=== PATIENT | female | born 1975 | race Caucasian/White ===

== ENCOUNTER → 2019-04-22 11:15 | Outpatient (CLI) | payer BC, SELFPAY ==
--- NOTE | ~2019-04-22 | XR_ITS ---
EXAMINATION: XR hip RT min 2V EXAM DATE: 04/22/2019 12:07 INDICATION: No known recent injury provided at this time. Pain of the right hip. TECHNIQUE: Right hip frontal, crosstable lateral and 'frog-leg' projections for interpretation. There is no prior study for comparison. FINDINGS: Smooth right hip femoral head contour, no radiographic evidence of avascular necrosis. The re are no acute fractures or dislocations identified. There is no subcutaneous gas. The soft tissue is unremarkable. There are no radiopaque foreign bodies. There is mild primary osteoarthritis. IMPRESSION: Mild right hip osteoarthritis. Reviewed, dictated and finalized at location B. M CLOTHES PRESS OPERATOR
--- NOTE | ~2019-04-22 | XR_ITS ---
EXAMINATION: XR hip LT min 2V EXAM DATE: 04/22/2019 12:09 INDICATION: No known recent injury provided at this time. Pain of the left hip. TECHNIQUE: Left hip frontal, crosstable lateral and 'frog-leg' projections for interpretation. There is no prior study for comparison. FINDINGS: Smooth left hip femoral head contour, no radiographic evidence of avascular necrosis. Ther e is mild left hip primary osteoarthritis. There are no acute fractures or dislocations identified. There is no subcutaneous gas. The soft tissue is unremarkable. There are no radiopaque foreign bod ies. IMPRESSION: Mild left hip osteoarthritis. Reviewed, dictated and finalized at location B. ING MACHINE OPERATOR
--- NOTE | ~2019-04-22 | XR_ITS ---
EXAMINATION: XR foot LT 2V EXAM DATE: 04/22/2019 12:07 INDICATION: No known recent injury provided at this time. Pain of the left foot. TECHNIQUE: Frontal and lateral projections of the left foot. There is no prior study for comparison . FINDINGS: Tiny left calcaneal spurs. There are no acute fractures or dislocations identified. There is no subcutaneous gas. The soft tissue is unremarkable. There are no radiopaque foreign bodies. The joint spaces are uniform. IMPRESSION: Tiny left calcaneal spurs. Reviewed, dictated and finalized at location B. FIELD MANAGER IMPRESSION: Tiny left calcaneal spurs.
--- NOTE | ~2019-04-22 | XR_ITS ---
EXAMINATION: XR foot RT 2V EXAM DATE: 04/22/2019 12:07 INDICATION: No known recent injury provided at this time. Pain of the right foot. TECHNIQUE: Frontal and lateral projections of the right foot. There is no prior study for compariso n. FINDINGS: There is mild right first metatarsophalangeal joint primary osteoarthritis. Tiny calcaneal spurs. There are no acute fractures or dislocations identified. There is no subcutaneous gas. The soft tissue is unremarkable. There are no radiopaque foreign bodies. There are no bony erosions id entified. IMPRESSION: Mild right first MTP osteoarthritis. Reviewed, dictated and finalized at location B. N WINDER
--- NOTE | ~2019-04-22 | XR_ITS ---
EXAMINATION: XR knee RT 2V DATE: 04/22/2019 12:06 INDICATION: Multiple joint pain. TECHNIQUE: 2 views of right knee were obtained. COMPARISON: None. FINDINGS: Bone alignment is normal. No fracture. There is mild tricompartmental osteoarthritis. No kn ee joint effusion. IMPRESSION: 1. Mild right knee osteoarthritis. Reviewed, dictated and finalized at location A. IT RISK OFFICER
--- NOTE | ~2019-04-22 | XR_ITS ---
EXAMINATION: XR knee LT 2V EXAM DATE: 04/22/2019 12:07 INDICATION: Initial encounter following injury, with pain of the left knee. TECHNIQUE: Frontal and lateral projections of the left knee. There is no prior study for comparison . FINDINGS: There are no acute left knee fractures or dislocations identified. There is no subcutaneou s gas. The soft tissue is unremarkable. There are no radiopaque foreign bodies. Joint spaces are preserved, no bony productive changes. No joint effusion. IMPRESSION: 1. Unremarkable XR knee LT 2V exam. Reviewed, dictated and finalized at location B. ELAIN ENAMEL INSTALLER
== END ==
PROVIDERS: PCP Internal Medicine Rheumatology; Visit Provider Internal Medicine Rheumatology
DX: M19.071 Primary osteoarthritis, right ankle and foot (principal); M77.32 Calcaneal spur, left foot; M16.0 Bilateral primary osteoarthritis of hip; M17.12 Unilateral primary osteoarthritis, left knee
CPT/HCPCS: 73502; 73560; 73620

== ENCOUNTER → 2019-04-22 13:57 | Outpatient (CLI) | payer BC, SELFPAY ==
--- NOTE | ~2019-04-22 | MMUS_ITS ---
EXAMINATION: MM diagnostic vanessa BI w shanice, US breast LT limited HISTORY: Palpable left breast lump with pain for one month TECHNIQUE: Additional 3-D tomosynthesis images of the breasts were performed and synthetic 2-D images were generated. CAD analysis was submitted and interpreted. High resolution left breast ultrasound w as performed. COMPARISON: Comparison to multiple prior studies sequentially, with oldest reviewed study dated 05/07. FINDINGS: MAMMOGRAPHIC FINDINGS: Breast composed of scattered areas of fibroglandular density. There are no suspicious masses, calcifi cations or architectural distortion in either breast to suggest malignancy. ULTRASOUND: Left breast ultrasound: Normal heterogeneous echotexture without focal mass. IMPRESSION: 1. No mammographic or sonographic evidence for malignancy. 2. Routine yearly screening mammogram and regular clinical breast examination are recommended. BI-RADS Category 1: Negative Reviewed, dictated and finalized at location A. ER GUARD IMPRESSION: 1. No mammographic or sonographic evidence for malignancy. 2. Routine yearly screening mammogram and regular clinical breast examination a re recommended. BI-RADS Category 1: Negative
== END ==
PROVIDERS: Visit Provider Nurse Practitioner
DX: N63.20 Unspecified lump in the left breast, unspecified quadrant (principal)
CPT/HCPCS: 76642; 77062; 77066; G0279

== ENCOUNTER 2019-08-23 15:50 | Emergency (ER) | payer BC, SELFPAY ==
[2019-08-23 16:37] VITALS: BP 131/74; PULSE 124; RESP 20; TEMP 37.4; O2SAT 99
--- NOTE | 2019-08-23 16:43 | ED.WOUNDLAC ---
HPI - Wound/Laceration General Chief Complaint: Wound/Laceration Stated Complaint: dog bite Time Seen by Provider: 08/23/19 16:46 Source: patient and RN notes reviewed Mode of arrival: ambulatory Limitations: no limitations History of Present Illness HPI narrative: 43-year-old female presents with concern for dog bite. Reports prior to arrival she was breaking up a fight between her dogs, who are up-to-date on vaccinations, when she sustained 2 superficial lacerations to her left digits 2 and 3. Reports she is not up-to-date on her tetanus vaccine. Denies any decreased range of motion, strength, sensation in any digit. Related Data Home Medications Medication Instructions Recorded Confirmed omeprazole 08/23/19 ropinirole mg 08/23/19 Allergies Allergy/AdvReac Type Severity Reaction Status Date / Time azithromycin Allergy Severe RASH Verified 10/26/17 10:19 Cephalosporins Allergy Severe Anaphylactic Verified 10/26/17 10:19 Shock, Rash Review of Systems Review of Systems: Narrative: CONSTITUTIONAL: Denies malaise, chills, sweats, or fever. SKIN: Reports wound to the second and third digit of her left hand MUSCULOSKELETAL: Denies musculoskeletal pain, decreased range of motion, decrease strength NEUROLOGIC: Denies numbness, weakness. All systems reviewed & are unremarkable except as noted in HPI and below PMFSH Family History Family History (Updated 04/18/16 @ 14:22 by DOCTOR UNKNOWN) Mother Cerebrovascular accident Father Family history of lung cancer Other Diabetes mellitus Family history of allergic disorder Family history of cardiovascular disease Family history of malignant neoplasm Social History Social History Smoking status: Current every day smoker Alcohol intake: current Comments At time of signature, agree with nursing past medical, surgical, social and family history. There is no relevant family history pertinent to the presenting complaint Exam Narrative: Exam Narrative: GENERAL: Well-appearing, well-nourished, and in no acute distress. HEAD: Normocephalic EYES: PERRLA, conjunctivae clear ENT: Mucous membranes moist. TM pearly lemus with sharp light reflex bilaterally; no tragal tenderness. Oropharynx without erythema or lesions. Tonsils not enlarged and without exudate. NECK: Supple. CHEST: No respiratory distress. Speaks in full sentences. HEART: Regular rate and rhythm EXTREMITIES: Left hand and digits of hand have normal strength and sensation. 5/5 strength with digit flexion, extension. Range of motion normal. No clubbing, cyanosis, or edema noted. No tenderness. Normal digital cascade with flexion of fingers, median, ulnar and radial nerve intact. Normal sensation of each side of finger. Can perform 'okay' sign, 'cross over finger test of index and middle fingers' and 'thumbs up' sign. No scissoring. Normal thumb opposition. Good capillary refill and radial pulse. Distal capillary refill ?3 seconds. SKIN: Warm, dry, no rash. 2 linear lacerations, superficial, noted to the second and third digit of left hand. Second digit wound is 2.5 cm located between the DIP and the PIP joints. The wound to the third digit is approximately 2 cm. NEURO: Alert and oriented x3. PSYCH: Normal mood and affect Course Course Emergency Course: Wound superficial, cleansed and closed with Steri-Strips, well approximated. Patient is aware of diagnosis, understands and agrees to treatment plan. Anticipatory guidance given. Patient agrees to follow-up as directed and is aware of reasons to seek care at the emergency department. Portions of this record may have been created with voice recognition software Vital Signs Vital signs: Vital Signs Temperature 99.3 F 08/23/19 16:37 Pulse Rate 124 H 08/23/19 16:37 Respiratory Rate 20 08/23/19 16:37 Blood Pressure 131/74 08/23/19 16:37 Pulse Oximetry 99 08/23/19 16:37 Temperature 99.3 F 08/23/19 16:37 Pulse Rate 124 H
[2019-08-23] MEDS: TETANUS,DIPHTHERIA,AC PERTUSSIS ADULT (0.5 ML) BOOSTRIX IM (17:02)
== END 2019-08-23 17:23 | disposition home or self-care (01) ==
PROVIDERS: Emergency Provider Nurse Practitioner
DX: S61.251A Open bite of left index finger without damage to nail, initial encounter (principal); S61.253A Open bite of left middle finger without damage to nail, initial encounter; Z23 Encounter for immunization; W54.0XXA Bitten by dog, initial encounter; F17.200 Nicotine dependence, unspecified, uncomplicated
CPT/HCPCS: 90471; 90715; 99212; G0463

== ENCOUNTER 2019-11-10 17:54 | Emergency (ER) | payer BC, SELFPAY ==
--- NOTE | ~2019-11-10 | XR_ITS ---
EXAMINATION: XR lumbar spine 2-3V DATE: 11/10/2019 19:56 INDICATION: Low back pain. TECHNIQUE: 3 views of lumbar spine were obtained. COMPARISON: CT abdomen and pelvis 10/10/2012 FINDINGS: There is 5 degrees dextrocurvature of lumbar spine. Vertebral body heights are normal. Ther e are endplate osteophytes at most levels. Intervertebral disc heights are normal. There is multileve l mild facet joint osteoarthritis. Surgical clips in the right upper quadrant are likely from cholecy stectomy. IMPRESSION: 1. Mild lumbar spondylosis. Reviewed, dictated and finalized at location A. IMPRESSION: 1. Mild lumbar spondylosis.
[2019-11-10 18:45] VITALS: BP 131/79; PULSE 90; RESP 16; TEMP 36.1; O2SAT 100
--- NOTE | 2019-11-10 20:17 | ED.BACK ---
HPI - Back Pain/Injury General Chief Complaint: Back Pain/Injury Stated Complaint: Lower back pain Time Seen by Provider: 11/10/19 20:16 History of Present Illness HPI Narrative: Low back pain for the past 2 days. Started a few hours after moving furniture. Located in the bilateral lower back. Radiates into the buttocks bilaterally. Reports the her legs feel shakey. She has been ambulatory. She tired meloxicam without relief. No fever, incontinence, constipation, trauma. Related Data Home Medications Medication Instructions Recorded Confirmed omeprazole BID 08/23/19 ropinirole 1 mg HS 08/23/19 cetirizine [Zyrtec] 10 mg PO DAILY 11/10/19 cholecalciferol (vitamin D3) 25 mcg PO DAILY 11/10/19 [Vitamin D3] ferrous sulfate 325 mg PO DAILY 11/10/19 Allergies Allergy/AdvReac Type Severity Reaction Status Date / Time azithromycin Allergy Severe RASH Verified 11/10/19 18:50 Cephalosporins Allergy Severe Anaphylactic Verified 11/10/19 18:50 Shock, Rash Review of Systems Review of Systems: All systems reviewed & are unremarkable except as noted in HPI and below Constitutional: Constitutional: Denies fever(s) and Denies weakness Cardiovascular: Cardiovascular: Denies chest pain Respiratory: Respiratory: Denies dyspnea Gastrointestinal: Gastrointestinal: Denies abdominal pain and Denies nausea Genitourinary: Genitourinary: Denies hematuria and Denies dysuria Musculoskeletal: Musculoskeletal: Reports back pain Neurologic: Denies dizziness, Denies headache(s) and Denies weakness PMFSH Past Medical History Medical History Fibromyalgia Low back pain Family History Family History Mother Cerebrovascular accident Father Family history of lung cancer Other Diabetes mellitus Family history of allergic disorder Family history of cardiovascular disease Family history of malignant neoplasm Social History Social History Smoking status: Current every day smoker Alcohol intake: current Gender identity (if verbalized by the patient): Female Exam Const: General: healthy appearing, no acute distress and alert Orientation/consciousness: patient oriented x3 HENMT: Head: normal to inspection Neck: Neck: normal visual inspection and no lymphadenopathy Chest: Chest palpation & inspection: no tenderness Resp: Effort & Inspection: normal respiratory effort Auscultation: clear to auscultation bilaterally, no rales, no rhonchi and no wheezes Cardio: Jugular venous distension: no JVD Rate: regular rate Rhythm: regular rhythm Heart sounds: no murmurs GI: Inspection: non-distended GI Palp: Yes Soft to palpation and No Tenderness to palpation present (GI) Skin: General skin exam: normal color Neuro: General: patient oriented x3 and moves all extremities Speech: normal speech Motor exam (neuro): 5/5 motor strength present throughout Extrem: General: no edema Psych: Appearance: well kempt Affect: normal affect Course Vital Signs Vital signs: Vital Signs Temperature 36.1 C L 11/10/19 18:45 Pulse Rate 90 11/10/19 18:45 Respiratory Rate 16 11/10/19 18:45 Blood Pressure 131/79 11/10/19 18:45 Pulse Oximetry 100 11/10/19 18:45 Temperature 36.7 C 11/10/19 22:40 Pulse Rate 79 11/10/19 22:40 Respiratory Rate 18 11/10/19 22:40 Blood Pressure 121/79 11/10/19 22:40 Pulse Oximetry 100 11/10/19 22:40 MDM - Back Pain/Injury MDM Narrative Medical decision making narrative: Exam is benign. She reports recent MRI here. I do not see it in our system, but based on what she is telling me it sounds like there were no particularly concerning findings. Differential Diagnosis Differential diagnosis: Likely sciatica and strain of lumbar region Medical Records Attestation: I reviewed the patient's med
[2019-11-10] MEDS: KETOROLAC (*BKC) 60 MG/2 ML VIAL IM (21:06)
[2019-11-10 21:34] VITALS: BP 128/86; PULSE 88; RESP 18; O2SAT 100
[2019-11-10] MEDS: MORPHINE SULFATE 10 MG/ML AMP 4 MG IM (22:08)
[2019-11-10 22:40] VITALS: BP 121/79; PULSE 79; RESP 18; TEMP 36.7; O2SAT 100
== END 2019-11-10 22:42 | disposition home or self-care (01) ==
PROVIDERS: Emergency Provider Emergency Medicine
DX: S39.012A Strain of muscle, fascia and tendon of lower back, initial encounter (principal); M79.7 Fibromyalgia; F17.200 Nicotine dependence, unspecified, uncomplicated; M47.816 Spondylosis without myelopathy or radiculopathy, lumbar region; X50.9XXA Other and unspecified overexertion or strenuous movements or postures, initial encounter
CPT/HCPCS: 72100; 96372; 99284; J1100; J1885; J2270; J3360

== ENCOUNTER → 2020-06-01 07:54 | Outpatient (CLI) | payer BC, SELFPAY ==
--- NOTE | ~2020-06-01 | MMUS_ITS ---
EXAMINATION: MM diagnostic vanessa BI w shanice, US breast LT limited HISTORY: Lower inner quadrant left breast lump, pain near inframammary fold. Bilateral nipple dischar ge. TECHNIQUE: ML, MLO and craniocaudal 3-D tomosynthesis images of both breasts were performed and synth etic 2-D images were generated. CAD analysis was submitted and interpreted. High resolution lower inn er quadrant left breast ultrasound was performed. COMPARISON: Serial mammographic and left breast ultrasound images dating back to 05/03/2016 BREAST PARENCHYMAL COMPOSITION: There are scattered areas of fibroglandular density. FINDINGS: MAMMOGRAPHIC FINDINGS: An approximately 3.6 x 7.7 mm circumscribed opacity is noted in the lower inner quadrant left breast at approximately 8-9:00 position. No suspicious mass or architectural distortion is noted otherwise. There are occasional bilateral nilda ign calcifications. There is a biopsy marker in the upper outer quadrant of the left breast; history of prior benign left stereotactic breast biopsy in 2018. ULTRASOUND: No suspicious mass, shadowing or cyst or other significant sonographic finding is noted at the area o f clinical complaint of lump and pain at 7:00 10 cm from the nipple. At 9:00 approximately 7 cm from the nipple there is an approximately 4 x 6.7 mm circumscribed hypoech oic solid lesion with some posterior shadowing. No internal vascularity is evident. This lesion likel y corresponds to the above-mentioned mammographic opacity. IMPRESSION: 1. 4 x 6.7 mm shadowing solid mass at 9:00 7 cm from nipple 2. Ultrasound-guided biopsy of 9:00 lesion 7 cm from nipple is recommended. BI-RADS category 4, suspicious finding. Dr. Jones telephoned the report and left breast 9:00 ultrasound guided biopsy recommendation on 06/02/19 21 at 0920 hours to Nurse Trinity. Reviewed, dictated and finalized at location A. IMPRESSION: 1. 4 x 6.7 mm shadowing solid mass at 9:00 7 cm from nipple 2. Ultrasound-guided biopsy of 9:00 lesion 7 cm from nipple is recommended. BI-RADS category 4, suspicious finding. Dr. Jones telephoned the report and left breast 9:00 ultrasound guided biopsy re commendation on 06/01/2020 at 0920 hours to Nurse Trinity.
== END ==
PROVIDERS: PCP Nurse Practitioner Family; Visit Provider Nurse Practitioner
DX: N63.25 Unspecified lump in the left breast, overlapping quadrants (principal); R92.8 Other abnormal and inconclusive findings on diagnostic imaging of breast
CPT/HCPCS: 76642; 77062; 77066; G0279

== ENCOUNTER → 2020-12-01 17:52 | Outpatient (CLI) | payer BC, SELFPAY ==
--- NOTE | ~2020-12-01 | XR_ITS ---
XR scapula LT DATE: 12/01/2020 18:16 INDICATION: Left scapular pain for 3 years TECHNIQUE: AP and Neer views COMPARISON: None FINDINGS: No fracture or dislocation or bone destruction of the scapula. Normal alignment at the acro mioclavicular and glenohumeral joints. IMPRESSION: Negative Reviewed, dictated and finalized at location A. IMPRESSION: Negative
== END ==
PROVIDERS: PCP Nurse Practitioner Family; Visit Provider Nurse Practitioner Family
DX: M75.42 Impingement syndrome of left shoulder (principal)
CPT/HCPCS: 73010

== ENCOUNTER 2020-12-07 08:40 | Outpatient (CLI) | payer BC, SELFPAY ==
--- NOTE | ~2020-12-07 | MR_ITS ---
EXAMINATION: MRI RT SHOULDER W/WO DATE: 11/15/09 12:58:00 INDICATION: Scapular pain with popping, grinding and numbness/tingling throughout the adjacent chest wall. TECHNIQUE: Magnetic resonance imaging (MRI) of the right scapula/shoulder was performed without intra venous contrast. Sequences included axial PD-weighted FS FSE, coronal oblique T1-weighted FSE, becker l oblique T2-weighted FS FSE, sagittal T2-weighted FS FSE, and sagittal T1-weighted FSE. COMPARISON: Left scapula radiographs dated 12/01/2020 FINDINGS: Coracoacromial arch: The acromion undersurface is minimally curved in morphology (type I-II). The coracoacromial ligament is normal. Acromioclavicular joint is normal. Rotator cuff: Supraspinatus tendinopathy without discrete tear. The infraspinatus, teres minor and subscapularis te ndons are normal. Normal rotator cuff muscle bulk and signal. Biceps tendon, glenoid labrum and glenohumeral cartilage: Long head of the biceps tendon is normal. Glenoid labrum is normal. Glenohumeral cartilage is normal. Fluid: Physiologic amount of fluid in the glenohumeral joint and biceps tendon sheath. No loose osteochondra l bodies. No abnormally increased fluid signal in the subacromial/subdeltoid bursa to suggest bursiti s. No evident scapulothoracic MRSA/bursitis. Bones/other: Normal marrow signal with no edema, fracture or abnormal marrow replacing process. No pathologically enlarged left axillary, subpectoral or visualized supraclavicular lymphadenopathy. This lies portion of the brachial plexus is unremarkable. IMPRESSION: 1. Mild supraspinatus tendinopathy without discrete tear. Otherwise normal MRI of the left shoulder a nd scapula. Reviewed, dictated and finalized at location A. IMPRESSION: 1. Mild supraspinatus tendinopathy without discrete tear. Otherwise normal MRI of the left shoulder and scapula.
== END 2020-12-07 08:41 | disposition home or self-care (01) ==
PROVIDERS: PCP Nurse Practitioner Family; Visit Provider Nurse Practitioner Family
DX: M75.42 Impingement syndrome of left shoulder (principal)
CPT/HCPCS: 73218

== ENCOUNTER 2021-06-15 11:50 | Outpatient (CLI) | payer OTHER, SELFPAY ==
--- NOTE | ~2021-06-15 | MM_ITS ---
EXAMINATION: MM screening vanessa BI w shanice HISTORY: Screening mammogram TECHNIQUE: Craniocaudal and mediolateral oblique 3-D tomosynthesis images were obtained and synthetic 2-D images were generated. CAD analysis was submitted and interpreted. COMPARISON: 06/01/2020 and 04/22/2019 diagnostic bilateral mammogram and limited left breast ultrasound 10/08/2018 diagnostic left mammogram 05/09/2018 bilateral screening mammogram BREAST PARENCHYMAL COMPOSITION: There are scattered areas of fibroglandular density. FINDINGS: There are 2 biopsy markers on the left; history of 2 prior benign left breast biopsies. Bilateral mammographic asymmetries: New 5.5 x 7 mm irregular mass in the outer left breast and anterior to mid depth (craniocaudal Tomosy nthesis image 45/77). Several spiculated areas are suggested in the outer posterior left breast (craniocaudal Tomosynthesis image 40/81). IMPRESSION: 1. Bilateral mammographic asymmetries including possible 7 mm mass on the left and several spiculated areas on the left 2. Bilateral diagnostic mammography is recommended, with ultrasound if required BI-RADS Category 0: Incomplete: Needs additional imaging evaluation. Reviewed, dictated and finalized at location A.
== END 2021-06-15 11:51 | disposition home or self-care (01) ==
LOC: ANHIMG 11:52
PROVIDERS: PCP Physician Assistant; Visit Provider Nurse Practitioner
DX: Z12.31 Encounter for screening mammogram for malignant neoplasm of breast (principal); R92.8 Other abnormal and inconclusive findings on diagnostic imaging of breast
CPT/HCPCS: 77063; 77067

== ENCOUNTER 2021-06-22 13:33 | Outpatient (CLI) | payer OTHER, SELFPAY ==
--- NOTE | ~2021-06-22 | MMUS_ITS ---
EXAMINATION: MM diagnostic vanessa BI w shanice, US breast BI complete HISTORY: Follow-up breast asymmetries. TECHNIQUE: Additional 3-D tomosynthesis images of the breasts were performed and synthetic 2-D images were generated. CAD analysis was submitted and interpreted. High resolution bilateral complete breas t ultrasound was performed. COMPARISON: Comparison to multiple prior studies sequentially, with oldest reviewed study dated 05/07. BREAST PARENCHYMAL COMPOSITION: Breast composed of scattered areas of fibroglandular density FINDINGS: MAMMOGRAPHIC FINDINGS: Bilateral breast asymmetries are less dense with spot compression and mediolateral views. No discrete mass or suspicious cluster of calcifications. ULTRASOUND: Complete bilateral US of all 4 quadrants of the breasts and retroareolar region was reviewed. Normal heterogeneous echotexture throughout both breasts without discrete mass. IMPRESSION: 1. Probable benign bilateral breast asymmetries. No sonographic correlate. 2. Recommend 6 month follow-up diagnostic bilateral mammogram BI-RADS category 3, probably benign findings. Reviewed, dictated and finalized at location A. IMPRESSION: 1. Probable benign bilateral breast asymmetries. No sonographic correlate. 2. Recommend 6 month follow-up diagnostic bilateral mammogram BI-RADS category 3, probably benign findings.
== END 2021-06-22 13:34 | disposition home or self-care (01) ==
LOC: ANHIMG 13:35
PROVIDERS: PCP Physician Assistant; Visit Provider Obstetrics & Gynecology Gynecology
DX: R92.8 Other abnormal and inconclusive findings on diagnostic imaging of breast (principal)
CPT/HCPCS: 76641; 77062; 77066; G0279

== ENCOUNTER → 2022-06-05 07:49 | Outpatient (CLI) | payer SELFPAY ==
--- NOTE | ~2022-06-05 | US_ITS ---
US right upper quadrant INDICATION: Liver mass seen on CT examination. PROCEDURE: Realtime right upper abdominal ultrasound. COMPARISON: CT dated 10/10/2012 and 12/07/2010 FINDINGS: The pancreas is normal without focal mass or pancreatic ductal dilation. Liver echotexture is increased, consistent with fatty infiltration. No focal hepatic masses are seen. There is normal directional flow in the portal vein. Gallbladder is surgically absent. Common bile duct measures 4 mm. No sonographic Pagan's sign. Rig ht renal echotexture is unremarkable. Right kidney measures 11.6 cm. IMPRESSION: 1: Hepatic steatosis. Reviewed, dictated and finalized at location B. IMPRESSION: 1: Hepatic steatosis.
== END ==
PROVIDERS: PCP Nurse Practitioner Family
DX: R16.0 Hepatomegaly, not elsewhere classified (principal); K76.0 Fatty (change of) liver, not elsewhere classified
CPT/HCPCS: 76705

== ENCOUNTER → 2022-09-04 15:51 | Outpatient (CLI) | payer OTHER, SELFPAY ==
--- NOTE | ~2022-09-04 | US_ITS ---
EXAMINATION: US transvaginal DATE: 09/04/2022 16:15 INDICATION: Left lower quadrant abdominal pain. TECHNIQUE: Multiple transvaginal sonographic images of the pelvis were obtained. COMPARISON: Ultrasound pelvis 03/21/2017 FINDINGS: The uterus is absent. There is no free fluid in the pelvis. The right ovary measures 3.0 x 1.5 x 2.0 cm. The left ovary measures 2.3 x 1.9 x 2.9 cm. There is normal vascular flow in the ovaries. IMPRESSION: 1. Normal ovaries. 2. Absent uterus. Reviewed, dictated and finalized at location E.
== END ==
PROVIDERS: PCP Nurse Practitioner; Visit Provider Nurse Practitioner
DX: R10.2 Pelvic and perineal pain (principal)
CPT/HCPCS: 76830

== ENCOUNTER → 2022-11-24 08:33 | Outpatient (CLI) | payer SELFPAY ==
--- NOTE | ~2022-11-24 | CT_ITS ---
EXAMINATION: CT soft tissue neck w con DATE: 11/24/2022 09:20 INDICATION: Odontophagia. Chronic tonsillitis and adenoiditis. Sore throat and ear pain. TECHNIQUE: Computed tomography (CT) of the neck was performed with 75 mL Omnipaque-350 intravenous co ntrast. Automated exposure control and iterative reconstruction technique were employed. The dose-leigha gth product was 385.85 mGy-cm. COMPARISON: None FINDINGS: Orbits are normal. Mild mucosal thickening in the right maxillary and bilateral ethmoid sinuses. Mast oid air cells and middle ear cavities are clear. Submandibular and parotid glands are symmetric. Thyr oid gland is unremarkable. Parapharyngeal soft tissues are unremarkable with no inflammatory strandin g. No abscess or abnormal enlargement of the tonsils or adenoids. There are scattered normal-sized ly mph nodes in the neck, no lymphadenopathy. No masses identified. Normal variant aberrant retroesopha geal right subclavian artery. Visualized vasculature is otherwise unremarkable. Airway is unremarkabl e. Mild emphysema at the visualized upper lungs. Superior mediastinum is unremarkable. Bones are unre markable. IMPRESSION: 1. Parapharyngeal soft tissues are unremarkable with no inflammatory stranding, abscess or enlargemen t of the tonsils or adenoids. 2. Mild emphysema. 3. 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 Reviewed, dictated and finalized at location A. IMPRESSION: 1. Parapharyngeal soft tissues are unremarkable with no inflammatory stranding, abscess or enlargement of the tonsils or adenoids. 2. Mild emphysema. 3. 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
[2022-11-24 09:09] LABS: Estimated Glomerular Filt Rate > 60
== END ==
PROVIDERS: PCP Nurse Practitioner Family; Visit Provider Otolaryngology
DX: R13.19 Other dysphagia (principal); J43.9 Emphysema, unspecified
CPT/HCPCS: 70491; Q9967

== ENCOUNTER → 2023-03-02 08:57 | Outpatient (CLI) | payer SELFPAY ==
--- NOTE | ~2023-03-02 | MMUS_ITS ---
EXAMINATION: MM diagnostic vanessa BI w shanice, US breast LT limited HISTORY: Swelling of the left axilla and palpable lumps in the upper outer quadrant of the left breas t TECHNIQUE: Craniocaudal, mediolateral, and mediolateral oblique 3-D tomosynthesis images of the breas ts were performed and synthetic 2-D images were generated. CAD analysis was submitted and interpreted . High resolution limited left breast and axillary ultrasound was performed. COMPARISON: 06/19/2022, 12/26/2021, 06/22/2021, 06/15/2021, 06/01/2020 BREAST PARENCHYMAL COMPOSITION: There are scattered areas of fibroglandular density. FINDINGS: MAMMOGRAPHIC FINDINGS: No suspicious mass, calcification, or architectural distortion are identified in either breast to sug gest malignancy. There has been no suspicious interval change. No mammographic correlate is identifie d for the reported palpable abnormalities of the left breast or left axilla. ULTRASOUND: There are normal-appearing lymph nodes in the left axilla. No suspicious cystic or solid mass is iden tified. IMPRESSION: 1. No specific mammographic or sonographic correlate is identified for the reported palpable abnormal ities of concern in the left breast or left axillary swelling. Further evaluation at this time should be based on clinical assessment. Continued follow-up physical examination is recommended. 2. Recommend routine screening mammography in one year. BI-RADS Category 1: Negative Reviewed, dictated and finalized at location A. IAL AGENT SECRET SERVICE IMPRESSION: 1. No specific mammographic or sonographic correlate is identified for the repo rted palpable abnormalities of concern in the left breast or left axillary swel ling. Further evaluation at this time should be based on clinical assessment. C ontinued follow-up physical examination is recommended. 2. Recommend routine screening mammography in one year. BI-RADS Category 1: Negative
== END ==
PROVIDERS: PCP Advanced Practice Midwife; Visit Provider Advanced Practice Midwife
DX: N63.21 Unspecified lump in the left breast, upper outer quadrant (principal)
CPT/HCPCS: 76642; 77062; 77066; G0279

== ENCOUNTER 2023-05-07 12:50 | Outpatient (CLI) | payer SELFPAY ==
--- NOTE | ~2023-05-07 | CT_ITS ---
EXAMINATION: CT diagnostic chest wo con DATE: 05/07/2023 13:17 INDICATION: OBSTRUCTIVE SLEEP APNEA TECHNIQUE: Computed tomography (CT) of the chest was performed without intravenous contrast. Addition al 3D reconstructions utilizing coronal maximum intensity projection (MIP) were performed. Automated exposure control and iterative reconstruction technique were employed. The dose-length product was 67 9.00 mGy-cm. COMPARISON: 12/18/2005 FINDINGS: Unchanged 3 mm noncalcified granuloma along the inferior right major fissure. No other suspicious pul monary nodules, pneumonia, pulmonary edema or pleural effusion. Heart size is normal. No pericardial effusion. Thoracic aorta is normal in caliber. No pathologically enlarged thoracic lymphadenopathy. C holecystectomy clips the gallbladder fossa. Visualized upper abdomen is otherwise unremarkable. Mild to moderate thoracic spondylosis. IMPRESSION: 1. No acute cardiopulmonary disease. Reviewed, dictated and finalized at location B.
== END 2023-05-07 12:51 ==
PROVIDERS: PCP Internal Medicine Pulmonary Disease; Visit Provider Internal Medicine Pulmonary Disease
DX: G47.33 Obstructive sleep apnea (adult) (pediatric) (principal); R06.02 Shortness of breath; R79.81 Abnormal blood-gas level; Z68.39 Body mass index [BMI] 39.0-39.9, adult; R05.3 Chronic cough; F51.04 Psychophysiologic insomnia
CPT/HCPCS: 71250

== ENCOUNTER 2023-05-18 14:29 | Outpatient (CLI) | payer SELFPAY ==
--- NOTE | 2023-05-18 16:21 | WPDPFTINT ---
PFT Procedure Performed PFT Procedure Performed Plethysmography (Lung Vol) Diffusing Cap (DLCO) Flow Vol Loop Spirometry w/o Bronchodil PFT Interpretation This is a pulmonary function test with spirometry, plethysmography and diffusing capacity. The test was performed and results interpreted in accordance with the 2019 and 2005 ATS/ERS Task Force guidelines respectively using the Global Lung Function Initiative-2012 reference equations. Patient demonstrated good effort and cooperation. Reproducibility criteria were met. The quality of the spirometry maneuver was Grade A. Findings: Spirometry: The contour the inspiratory and expiratory flow tracing are normal. The FVC is 3.70 L, 101% predicted. The FEV1 is 2.91 L, 99% predicted. The FEV1: FVC ratio is 79%. Plethysmography: The total lung capacity is 5.08 L, 98% predicted. The functional residual capacity is 2.37 L, 82% predicted. The residual volume is 1.38 L, 78% predicted. Diffusing capacity: The diffusing capacity unadjusted for hemoglobin and carboxyhemoglobin is 19.4, 83% predicted. The diffusing capacity adjusted for alveolar volume is 4.38, 95% predicted. Impression: The spirometry is normal without evidence of an obstructive abnormality. The lung volumes are normal. The diffusing capacity is normal. There are no prior studies for comparison
== END 2023-05-18 14:30 | disposition home or self-care (01) ==
PROVIDERS: PCP Nurse Practitioner Family; Visit Provider Internal Medicine Pulmonary Disease
DX: G47.33 Obstructive sleep apnea (adult) (pediatric) (principal); R06.02 Shortness of breath; R79.81 Abnormal blood-gas level; Z68.39 Body mass index [BMI] 39.0-39.9, adult; R05.3 Chronic cough; F51.04 Psychophysiologic insomnia
CPT/HCPCS: 94375; 94726; 94729

== ENCOUNTER 2023-05-27 21:41 | Emergency (ER) | payer OTHER, SELFPAY ==
--- NOTE | ~2023-05-27 | XR_ITS ---
EXAMINATION: XR chest 2V DATE: 05/27/2023 22:11 INDICATION: Chest pain and shortness of breath. TECHNIQUE: Frontal and lateral views of the chest were obtained. COMPARISON: None. FINDINGS: There is no pneumonia, pleural effusion, or pneumothorax. The heart size is normal. Surgica l clips in the right upper quadrant are likely from cholecystectomy. IMPRESSION: 1. No acute cardiopulmonary disease. Reviewed, dictated and finalized at location A.
--- NOTE | 2023-05-27 21:42 | ECG_ITS ---
Measurements Intervals [place] Rate: 96 P: 40 CA: 124 QRS: 53 QRSD: 104 T: 47 QT: 367 QTc: 464 Interpretive Statements SINUS RHYTHM LOW QRS VOLTAGE IN PRECORDIAL LEADS [QRS DEFLECTION < 1.0 mV IN CHEST LEADS] POSSIBLE RIGHT VENTRICULAR CONDUCTION DELAY [RSR (QR) IN V1/V2] BORDERLINE ECG NO PREVIOUS ECG AVAILABLE FOR COMPARISON Electronically Signed On 05-28-2023 12:52:42 CDT by Db Hendricks M.D.
[2023-05-27 21:48] VITALS: BP 128/70; PULSE 91; RESP 16; TEMP 36.1; O2SAT 99
[2023-05-27] MEDS: ASPIRIN 81 MG CHEWABLE TABLET 324 MG PO (21:55)
[2023-05-27 21:57] LABS: Basophils Percent Auto 0.5 % (0.2-1.2); Eosinophils Absolute Auto 0.4 K/mm3 (0-0.3); Eosinophils Percent Auto 4.2 % (0-4.4); Hematocrit 38.7 % (37.0-47.0); Hemoglobin 12.9 g/dL (12.0-15.0); Immature Granulocyte Absolute 0.01 K/mm3 (0.00-0.031); Immature Granulocyte Percent A 0.1 % (0-0.5); Lymphocytes Absolute Auto 3.29 K/mm3 (0.9-3.2); Lymphocytes Percent Auto 38.1 % (18.3-44.2); Mean Corpuscular HGB Conc 33.3 g/dl (32-36); Mean Corpuscular Hemoglobin 29.5 pg (26-34); Mean Corpuscular Volume 88.6 fl (80-100); Monocytes Absolute Auto 0.5 K/mm3 (0.1-0.6); Monocytes Percent Auto 5.8 % (2.6-8.5); Neutrophils Absolute Auto 4.4 K/mm3 (1.3-6.7); Neutrophils Percent Auto 51.3 % (45.5-73.1); Platelet Count Result 220 k/mm3 (150-375); Red Blood Count 4.37 M/mm3 (4.2-5.4); Red Cell Distribution Width 13.2 % (11.5-14.5); White Blood Count 8.6 K/mm3 (4.5-10.0)
[2023-05-27 22:21] LABS: Alanine Aminotransferase 32 U/L (6-35); Albumin Level 4.1 g/dL (3.5-5.1); Alkaline Phosphatase 85 U/L (38-126); Anion Gap 7 mmol/L (4-12); Aspartate Amino Transferase 28 U/L (14-36); Bilirubin,Total 0.3 mg/dL (0.2-1.3); Blood Urea Nitrogen 16 mg/dL (7-17); Calcium 9.2 mg/dL (8.4-10.2); Carbon Dioxide 24 mmol/L (22-30); Chloride 110 mmol/L (98-107); Estimated CRCL calculation 105 ml/min; Estimated Glomerular Filt Rate > 60; Glucose 124 mg/dL (65-110); Lipase 153 U/L (23-300); Potassium 3.6 mmol/L (3.4-5.0); Sodium 141 mmol/L (137-145)
[2023-05-27 22:32] LABS: Troponin I < 0.012 ng/mL (0.000-0.034)
--- NOTE | 2023-05-28 01:15 | ECG_ITS ---
Measurements Intervals [place] Rate: 75 P: 34 [place]: 150 QRS: 48 QRSD: 103 T: 44 QT: 395 QTc: 442 Interpretive Statements SINUS RHYTHM WITH SINUS ARRHYTHMIA NORMAL ELECTROCARDIOGRAM COMPARED TO ECG 05/27/2023 21:46:46 SINUS ARRHYTHMIA NOW PRESENT Electronically Signed On 05-28-2023 13:00:42 CDT by Db Hendricks M.D.
[2023-05-28 01:36] VITALS: PULSE 76; O2SAT 100
[2023-05-28 01:37] VITALS: O2SAT 100
[2023-05-28 01:49] LABS: Partial Thromboplastin Time 31.1 Seconds (22.3-36.8); Prothrombin Time 13.9 Seconds (11.1-14.7)
[2023-05-28 02:01] LABS: Troponin I < 0.012 ng/mL (0.000-0.034)
[2023-05-28 03:21] VITALS: BP 118/86; PULSE 75; RESP 20; O2SAT 100
--- NOTE | 2023-05-28 03:38 | ED.GENADULT ---
HPI - General Adult General Chief complaint: Chest Pain Stated complaint: CP/SOB Time Seen by Provider: 05/28/23 02:27 History of Present Illness HPI narrative: This is a 47-year-old female presenting with 2 months of intermittent chest pain. Patient says over last 2 months she has been having episodes of chest tightness in the center of her chest that are associated with shortness of breath. They have been happening to her 3-4 times per week and typically resolve on their own without intervention. Today they started at 3:00 p.m. and did not resolve like usual so she came to the emergency department for evaluation. Pain is now eased off and she feels she is back to her baseline. Patient denies fevers chills cough nausea vomiting exertional component or diaphoresis. She has seen a clearance center manager for this but not squad leader. Related Data Home Medications Medication Instructions Recorded Confirmed omeprazole 40 mg capsule,delayed BID 08/23/19 02/01/23 release ropinirole 0.5 mg tablet 1 mg HS 08/23/19 02/01/23 cetirizine 10 mg tablet (Zyrtec) 10 mg PO DAILY 11/10/19 02/01/23 albuterol sulfate 90 mcg/actuation 1 puff inhalation Q4H PRN 06/02/20 02/01/23 aerosol inhaler cholecalciferol (vitamin D3) 1,250 1,250 mcg PO WEEKLY 06/02/20 02/01/23 mcg (50,000 unit) capsule cholecalciferol (vitamin D3) 25 25 mcg PO DAILY 06/02/20 02/01/23 mcg (1,000 unit) capsule lorazepam 0.5 mg tablet 0.5 mg PO DAILY PRN 06/02/20 02/01/23 Allergies Allergy/AdvReac Type Severity Reaction Status Date / Time azithromycin Allergy Severe RASH Verified 05/27/23 21:41 Cephalosporins Allergy Severe Anaphylactic Verified 05/27/23 21:41 Shock, Rash PMFSH Past Medical History Medical History Chronic bronchitis Ectopic Fibromyalgia GERD (gastroesophageal reflux disease) Low back pain MICAH on CPAP Surgical History Surgical History H/O tubal ligation History of bunionectomy History of History of carpal tunnel release History of cholecystectomy History of excision of pilonidal cyst 04/2016 History of total abdominal hysterectomy with left ovarian cystectomy Family History Family History Mother Cerebrovascular accident Angina pectoris COPD (chronic obstructive pulmonary disease) Emphysema lung Heart disease Thyroid disorder Father Lung cancer Sibling Epilepsy brother Diabetes mellitus sister Multiple sclerosis sister Depression Grandparent Alcoholism Other Family history of allergic disorder Family history of cardiovascular disease Family history of malignant neoplasm Social History Social History Smoking packs per day: 1 Smoking cigarettes per day: 20.0 Years smoked: 20 Smoking pack-years: 20.00 Smoking status: Current every day smoker Tobacco type: e-cigarettes/vaping Alcohol intake: current Substance use: never Substance use type: does not use Lack of Transportation: No Lack of Food: Never True Current Housing: I Have Housing Concerned About Future Housing: No Difficulty Paying Gas/Electric Bills: No Difficulty Paying for Meds: No Currently Unemployed: No Education: High School Diploma/GED Difficulty w/ Childcare or Family Care: No Gender identity (if verbalized by the patient): Female Exam Narrative: APPEARANCE: No apparent distress. Well appearing Head: atraumatic. EYES: EOMI, NOSE: Atraumatic NECK: Trachea midline RESPIRATORY: No increased rate of breathing CTAB CARDIOVASCULAR: RRR, no peripheral edema ABDOMINAL: Non-distended soft nontender no guarding rebound MUSCULOSKELETAl: No obvious deformities NEURO: Alert. Moving 4/4 extremities SKIN:: Warm, dry. Normal color PSYCHIATRIC: Normal affect
== END 2023-05-28 03:53 | disposition home or self-care (01) ==
PROVIDERS: Emergency Provider Emergency Medicine; PCP Nurse Practitioner Family
DX: R07.89 Other chest pain (principal); F17.290 Nicotine dependence, other tobacco product, uncomplicated; K21.9 Gastro-esophageal reflux disease without esophagitis; M79.7 Fibromyalgia; G47.30 Sleep apnea, unspecified
CPT/HCPCS: 36415; 71046; 80053; 83690; 84484; 85025; 85610; 85730; 93005; 99284; A9270

== ENCOUNTER 2023-05-28 09:26 | Outpatient (CLI) | payer OTHER, SELFPAY ==
--- NOTE | ~2023-05-28 | CT_ITS ---
Non-contrast CT scan of the Abdomen and Pelvis Clinical indication: Abdominal pain Technique: 2.5 mm axial scans were obtained through the abdomen and pelvis without intravenous or or al contrast. Dose reduction technique was used on this scan by utilizing automated exposure control a nd iterative reconstruction technique. The dose-length product (DLP) was 1176.56 mGy-cm. Findings: Images through the lung bases reveal no abnormalities. There is no evidence of renal or ureteral calculi. The kidneys and the ureters are nondilated. The liver, spleen, pancreas, and adrenals appear normal. Cholecystectomy clips are present. There is no aortic aneurysm. There is no evidence of bowel obstruction. Images through the pelvis were performed. There is no evidence of ascites or lymphadenopathy. Urinary bladder unremarkable. No pelvic mass seen. Impression: No significant abnormality seen. Reviewed, dictated and finalized at [facility]. Impression: No significant abnormality seen.
== END 2023-05-28 09:27 ==
PROVIDERS: PCP Nurse Practitioner Family; Visit Provider Nurse Practitioner Family
DX: R10.12 Left upper quadrant pain (principal)
CPT/HCPCS: 74176

== ENCOUNTER → 2023-08-20 11:27 | Outpatient (CLI) | payer SELFPAY ==
--- NOTE | ~2023-08-20 | XR_ITS ---
Right foot Technique: AP and lateral views were obtained. Clinical History: Joint pain Findings: No acute fracture or dislocation is seen. Osseous alignment is anatomic. Joint spaces are p reserved without erosive or degenerative change. Soft tissues are unremarkable. Impression: Unremarkable right foot radiographs. Reviewed, dictated and finalized at location . Impression: Unremarkable right foot radiographs.
--- NOTE | ~2023-08-20 | XR_ITS ---
Left ankle Technique: AP and lateral views were obtained. Clinical History: Joint pain Findings: No acute fracture or dislocation is seen. Osseous alignment is anatomic. Ankle mortise and other visualized joint spaces are preserved. Soft tissues are otherwise unremarkable. Impression: Unremarkable left ankle. Reviewed, dictated and finalized at [facility]. Impression: Unremarkable left ankle.
--- NOTE | ~2023-08-20 | XR_ITS ---
Right ankle Technique: AP and lateral views were obtained. Clinical History: Joint pain Findings: No acute fracture or dislocation is seen. Osseous alignment is anatomic. Ankle mortise and other visualized joint spaces are preserved. Soft tissues are otherwise unremarkable. Impression: Unremarkable right ankle. Reviewed, dictated and finalized at [facility]. Impression: Unremarkable right ankle.
--- NOTE | ~2023-08-20 | XR_ITS ---
Left foot Technique: AP and lateral views were obtained. Clinical History: Joint pain Findings: No acute fracture or dislocation is seen. Osseous alignment is anatomic. Joint spaces are p reserved without erosive or degenerative change. Soft tissues are unremarkable. Impression: Unremarkable left foot radiographs. Reviewed, dictated and finalized at location . Impression: Unremarkable left foot radiographs.
--- NOTE | ~2023-08-20 | XR_ITS ---
Left Knee Technique: AP and lateral views were obtained. Clinical History: Pain Findings: No fracture or dislocation is seen. Osseous alignment is anatomic. Joint spaces are preserv ed without degenerative or erosive change. Soft tissues are unremarkable. No joint effusion is seen. Impression: Unremarkable left knee radiographs. Reviewed, dictated and finalized at location . Impression: Unremarkable left knee radiographs.
--- NOTE | ~2023-08-20 | XR_ITS ---
AP and lateral views of the right hip Clinical history: Pain Findings: No acute fracture or dislocation is seen. Osseous alignment is anatomic. Right hip joint is preserved. Soft tissues are unremarkable. Impression: No significant abnormality is seen. Reviewed, dictated and finalized at location M. Impression: No significant abnormality is seen.
--- NOTE | ~2023-08-20 | XR_ITS ---
Right Knee Technique: AP and lateral views were obtained. Clinical History: Pain Findings: No fracture or dislocation is seen. Osseous alignment is anatomic. Joint spaces are preserv ed without degenerative or erosive change. Soft tissues are unremarkable. No joint effusion is seen. Impression: Unremarkable right knee radiographs. Reviewed, dictated and finalized at location . Impression: Unremarkable right knee radiographs.
--- NOTE | ~2023-08-20 | XR_ITS ---
Left Shoulder Technique: AP internal and external rotation views were obtained. Clinical History: Pain Findings: No fracture or dislocation is seen. Osseous alignment is anatomic. The glenohumeral and acr omioclavicular joint spaces are preserved. Soft tissues are unremarkable. Impression: Unremarkable left shoulder radiographs. Reviewed, dictated and finalized at [facility]. Impression: Unremarkable left shoulder radiographs.
--- NOTE | ~2023-08-20 | XR_ITS ---
Right Shoulder Technique: AP internal and external rotation views were obtained. Clinical History: Joint pain Findings: No fracture or dislocation is seen. Osseous alignment is anatomic. The glenohumeral and acr omioclavicular joint spaces are preserved. Soft tissues are unremarkable. Impression: Unremarkable right shoulder radiographs. Reviewed, dictated and finalized at location . Impression: Unremarkable right shoulder radiographs.
--- NOTE | ~2023-08-20 | XR_ITS ---
AP and lateral views of the left hip Clinical history: Pain Findings: No acute fracture or dislocation is seen. Osseous alignment is anatomic. Left hip joint is preserved. Soft tissues are unremarkable. Impression: No significant abnormality is seen. Reviewed, dictated and finalized at location . Impression: No significant abnormality is seen.
== END ==
PROVIDERS: PCP Internal Medicine Rheumatology; Visit Provider Internal Medicine Rheumatology
DX: M25.50 Pain in unspecified joint (principal)
CPT/HCPCS: 73030; 73502; 73560; 73600; 73620

== ENCOUNTER → 2023-10-01 12:14 | Outpatient (CLI) | payer SELFPAY ==
--- NOTE | ~2023-10-01 | XR_ITS ---
Clinical Indication: Cough PA and lateral views of the chest: Comparison: 05/27/2023 Findings: The lungs are clear, without evidence of focal consolidation or pleural effusion. Cardiome diastinal silhouette is within normal limits. Bones and soft tissues are unremarkable. Impression: Normal chest. Reviewed, dictated and finalized at location . Impression: Normal chest.
== END ==
PROVIDERS: PCP Nurse Practitioner Family; Visit Provider Nurse Practitioner Family
DX: R05.1 Acute cough (principal)
CPT/HCPCS: 71046

== ENCOUNTER 2023-11-05 13:34 | Outpatient (CLI) | payer SELFPAY ==
--- NOTE | ~2023-11-05 | US_ITS ---
EXAMINATION: US soft tissue LE RT, US soft tissue LE LT DATE: 11/05/2023 14:04 INDICATION: Multiple chronic palpable lumps the left and right thighs. TECHNIQUE: Multiple grayscale and Doppler ultrasound images of the region of concern at the right and left thighs were obtained. COMPARISON: None FINDINGS: At the anterior right thigh, lateral right thigh, superolateral left thigh, anteromedial left thigh a nd lateral distal left thigh there is no radiologic correlate with normal appearance to the subcutane ous fat and underlying musculature. No abnormal masses or fluid collections identified. At the conveyor system dispatcher ior superior left calf there is heterogeneous echogenicity with some lobular portion of the subcutane ous fat demonstrating subtly increased echogenicity which could be due to inflammation or edema. No d iscrete capsular lipoma or other abnormal masses or fluid collections identified. IMPRESSION: 1. Subtle increased echogenicity within lobular regions of fat at one of the region of concern at the posterior superior left calf without a discrete encapsulated lipoma or other abnormal masses or flui d collections and this is most likely inflammatory in etiology. 2. No correlate identified for the reported palpable abnormalities at the remaining regions of the bi lateral lower limbs. Reviewed, dictated and finalized at location B. IMPRESSION: 1. Subtle increased echogenicity within lobular regions of fat at one of the re gion of concern at the posterior superior left calf without a discrete encapsul ated lipoma or other abnormal masses or fluid collections and this is most like ly inflammatory in etiology. 2. No correlate identified for the reported palpable abnormalities at the remai grey regions of the bilateral lower limbs.
== END 2023-11-05 13:35 | disposition home or self-care (01) ==
PROVIDERS: PCP Nurse Practitioner Family; Visit Provider Nurse Practitioner Family
DX: M79.89 Other specified soft tissue disorders (principal)
CPT/HCPCS: 76882

== ENCOUNTER → 2023-11-05 16:00 | Outpatient (CLI) | payer SELFPAY ==
--- NOTE | ~2023-11-05 | XR_ITS ---
3 VIEWS LUMBAR SPINE Ordering provider: Razia Higginbotham, [place] History: . PAIN DUE TO TRAUMA . Comparison: November 10, 2019 FINDINGS: VERTEBRAL BODIES:Mild dextroscoliosis. No visible fracture or subluxation. Degenerative changes of t he spine. DISK SPACES: Narrowing of the disc L5-S1. SOFT TISSUES: Normal. IMPRESSION: No acute osseous abnormality lumbar spine. Narrowing of the disc L5-S1. Reviewed, dictated and finalized at location A.
== END ==
LOC: EXPCRAD 16:04
PROVIDERS: PCP Chiropractor; Visit Provider Chiropractor
DX: M54.50 Low back pain, unspecified (principal)
CPT/HCPCS: 72100

== ENCOUNTER 2023-11-28 13:35 | Outpatient (CLI) | payer SELFPAY ==
--- NOTE | ~2023-11-28 | MR_ITS ---
EXAMINATION: MR lumbar spine wo con DATE: 11/28/2023 14:09 INDICATION: Low back pain. TECHNIQUE: Magnetic resonance imaging (MRI) of the lumbar spine was performed without intravenous con trast. Sequences included sagittal T2-weighted FSE, sagittal T2-weighted FS FSE, sagittal T1-weighted FSE, and axial T2-weighted FSE. COMPARISON: Lumbar spine radiographs 11/05/2023 FINDINGS: There is 5 degrees dextrocurvature of thoracolumbar spine. There is mild chronic anterior w edging of T11 vertebral body. There is mildly decreased disc height at T11-T12 and moderately decreas ed disc height at L5-S1. The distal spinal cord signal intensity is normal. The conus medullaris is a t T12-L1. The following disc levels are specifically discussed: T11-T12: There is a right central extrusion. There is no facet joint osteoarthritis. There is no neur al foraminal stenosis. There is mild central canal stenosis. L1-L2: The disc does not extend beyond the endplate margin. There is mild bilateral facet joint osteo arthritis. There is no neural foraminal stenosis. There is no central canal stenosis. L2-L3: The disc does not extend beyond the endplate margin. There is mild bilateral facet joint osteo arthritis. There is no neural foraminal stenosis. There is no central canal stenosis. L3-L4: There is a right foraminal protrusion. There is severe bilateral facet joint osteoarthritis. T here is mild right neural foraminal stenosis. There is no central canal stenosis. L4-L5: The disc does not extend beyond the endplate margin. There is mild bilateral facet joint osteo arthritis. There is no neural foraminal stenosis. There is no central canal stenosis. L5-S1: The disc is bulging and has an annular fissure. There is severe right and moderate left facet joint osteoarthritis. There is moderate right and mild left neural foraminal stenosis. There is mild central canal stenosis. IMPRESSION: 1. Moderate lower lumbar spondylosis. Reviewed, dictated and finalized at location A.
== END 2023-11-28 13:36 | disposition home or self-care (01) ==
LOC: GOSHIMG 13:36
PROVIDERS: PCP Nurse Practitioner Family; Visit Provider Internal Medicine Rheumatology
DX: M47.896 Other spondylosis, lumbar region (principal)
CPT/HCPCS: 72148

== ENCOUNTER 2023-12-23 12:49 | Emergency (ER) | payer SELFPAY ==
--- NOTE | ~2023-12-23 | XR_ITS ---
EXAMINATION: XR wrist LT min 3V DATE: 12/23/2023 13:01 INDICATION: Left wrist injury. TECHNIQUE: 3 views of left wrist were obtained. COMPARISON: Left thumb radiographs 02/08/2006 FINDINGS: Alignment is normal. No fracture. Joint spaces are normal. IMPRESSION: 1. Normal left wrist. Reviewed, dictated and finalized at location A. IMPRESSION: 1. Normal left wrist.
[2023-12-23 13:02] VITALS: BP 141/68; PULSE 111; RESP 20; TEMP 36.4; O2SAT 100
[2023-12-23 13:03] VITALS: BP 141/68; PULSE 111; RESP 20; TEMP 36.4; O2SAT 100
--- NOTE | 2023-12-23 13:48 | ED.FALL ---
HPI - Fall General Chief Complaint: Fall Stated Complaint: FALL Time Seen by Provider: 12/23/23 13:50 Source: patient, RN notes reviewed and old records reviewed Mode of arrival: ambulatory Limitations: no limitations History of Present Illness HPI Narrative: Patient presents with complaints of left wrist pain status post fall last night. She reports she has tripped on a step, slipped down about 3 of them. She reports that she tried to catch herself with her left wrist. Says that she immediately ice to the affected area. Has been taking ibuprofen. Reports minimal relief. States that pain is worse at the radial aspect. She does retain full range of motion. Voices no other concerns or complaints. Denies other injury and trauma. Related Data Home Medications Medication Instructions Recorded Confirmed ropinirole 0.5 mg tablet 1 mg HS 08/23/19 12/23/23 albuterol sulfate 90 mcg/actuation 1 puff inhalation Q4H PRN 06/02/20 12/23/23 aerosol inhaler sob,wheezing cholecalciferol (vitamin D3) 1,250 1,250 mcg PO WEEKLY 06/02/20 12/23/23 mcg (50,000 unit) capsule lorazepam 0.5 mg tablet 0.5 mg PO DAILY PRN Anxiety 06/02/20 12/23/23 fexofenadine 60 mg tablet (Keerthi 60 mg PO Q12H 05/28/23 12/23/23 Allergy) levothyroxine 88 mcg capsule 88 mcg PO DAILY 05/28/23 12/23/23 omeprazole 40 mg capsule,delayed 20 mg PO BID 05/28/23 12/23/23 release semaglutide 0.25 mg or 0.5 mg (2 0.25 mg subcut WEEKLY 05/28/23 12/23/23 mg/3 mL) subcutaneous pen injector (Ozempic) Allergies Allergy/AdvReac Type Severity Reaction Status Date / Time azithromycin Allergy Severe RASH Verified 12/23/23 13:01 Cephalosporins Allergy Severe Anaphylactic Verified 12/23/23 13:01 Shock, Rash Review of Systems Review of Systems: All systems reviewed & are unremarkable except as noted in HPI and below Constitutional: Constitutional: Reports no additional constitutional complaints ENT: Reports system reviewed and no additional complaints, except as documented Cardiovascular: Cardiovascular: Reports no additional cardiovascular complaints Respiratory: Respiratory: Reports no additional respiratory complaints Gastrointestinal: Gastrointestinal: Reports no additional gastrointestinal complaints Musculoskeletal: Musculoskeletal: Reports no additional musculoskeletal complaints and Reports as per [facility] Past Medical History Medical History Chronic bronchitis Ectopic Fibromyalgia GERD (gastroesophageal reflux disease) Low back pain MICAH on CPAP Surgical History Surgical History H/O tubal ligation History of bunionectomy History of History of carpal tunnel release History of cholecystectomy History of excision of pilonidal cyst 04/2016 History of total abdominal hysterectomy with left ovarian cystectomy Family History Family History Mother Cerebrovascular accident Angina pectoris COPD (chronic obstructive pulmonary disease) Emphysema lung Heart disease Thyroid disorder Father Lung cancer Sibling Epilepsy brother Diabetes mellitus sister Multiple sclerosis sister Depression Grandparent Alcoholism Other Family history of allergic disorder Family history of cardiovascular disease Family history of malignant neoplasm Social History Social History Smoking packs per day: 1 Smoking cigarettes per day: 20.0 Years smoked: 20 Smoking pack-years: 20.00 Smoking status: Current every day smoker Tobacco type: e-cigarettes/vaping Alcohol intake: current Substance use: never Substance use type: does not use Lack of Transportation: No Lack of Food: Never True Current Housing: I Have Housing Concerned About Future Housing: No Difficulty Paying Gas/Electric Bills: No Difficulty Paying for Meds: No Currently Unemployed: No Education: High School Diploma/GED Difficulty w/ Childcare or Family Care: No Gender identity (if verbalized by the patient): Female Exam Const: General: cooperative, no acute distress, alert and awake Orientation/consciousness: oriented to person, oriented to place and oriented to time HENMT: Head: normal to inspection Resp: Effort & Inspection: normal respiratory effort and able to speak in complete sentences Auscultation: clear to auscultation bilaterally, no crackles, no rales, no rhonchi and no wheezes Cardio: Palpation: normal PMI Rate: regular rate Rhythm: regular rhythm Heart sounds: S1 normal heart sound present and S2 normal heart sound present Neuro: General: oriented to person, oriented to place and oriented to time Cranial nerves: Yes CN's II-XII intact bilaterally Extrem: Left upper extremity: full ROM, normal capillary refill and wrist tenderness of the anatomic snuffbox, swelling of the volar wrist, normal ROM, ecchymosis, normal vascular exam, radial pulse present and ulnar pulse present; no deformity Psych: Appearance: grossly normal Thought process: Normal thought process present Insight: Good insight present (Psych) Judgement: Good judgement present (Psych) Course Course Level of Care: Express Care Visit Vital Signs Vital signs: Vital Signs Temperature 97.6 F 12/23/23 13:02 Pulse Rate 111 H 12/23/23 13:02 Respiratory Rate 20 12/23/23 13:02 Blood Pressure 141/68 H 12/23/23 13:02 Pulse Oximetry 100 12/23/23 13:02 Oxygen Delivery Room Air 12/23/23 13:02 Temperature 97.6 F 12/23/23 13:03 Pulse Rate 111 H 12/23/23 13:03 Respiratory Rate 20 12/23/23 13:03 Blood Pressure 141/68 H 12/23/23 13:03 Pulse Oximetry 100 12/23/23 13:03 Oxygen Delivery Room Air 12/23/23 13:03 MDM - Fall MDM Narrative Medical decision making narrative: Patient with significant left wrist pain status post fall. There is swelling and bruising present. Negative x-ray. Stan wrap applied. RICE therapy discussed. Patient follow-up with primary care provider, emergency department for new or worse symptoms. Discharge instructions reviewed with patient, as well as provided in writing per nursing staff. The instructions also include specific and strict return/GO TO THE ER as well as f/u information. All questions have been answered, and the patient deny any further questions with discharge and discharge plan. Some parts of this dictation were generated by voice recognition software and may contain typographical and/or grammatical inaccuracies. Differential Diagnosis Differential diagnosis: Likely other (Wrist fracture, wrist sprain) Medical Records Attestation: I reviewed the patient's medical records. Imaging Data My impression: negative Radiologist's impression: Patient: Vicky Cote : 1975 MR#: [id number] Age: 48 Acct:[id number] Loc: [facility] ADM Date: 12/23/23Attending Dr: Ordering Physician: Karon Morgan FNP Date of Service: 12/23/23 Procedure(s): XR wrist LT min 3V Accession Number(s): [id number] cc: Karon Morgan FNP; Bernardo, Sammie ODELL~ EXAMINATION: XR wrist LT min 3V DATE: 12/23/2023 13:01 INDICATION: Left wrist injury. TECHNIQUE: 3 views of left wrist were obtained. COMPARISON: Left thumb radiographs 02/08/2006 FINDINGS: Alignment is normal. No fracture. Joint spaces are normal. IMPRESSION: 1. Normal left wrist. Reviewed, dictated and finalized at location A. Dictated By: Yonatan Tsang MD 12/23/23 1302 Signed By: <Electronically signed by Yonatan Tsang MD in OV> 12/23/23 1303 Discharge Plan Discharge Clinical Impression: Elevated blood pressure reading Injury of wrist Qualifiers: Encounter type: initial encounter Laterality: left Qualified Code(s): S69.92XA - Unspecified injury of left wrist, hand and finger(s), initial encounter Patient Disposition: Home, Self-Care Condition: Stable Instructions: P.R.I.C.E. Treatment (ED) Additional Instructions: Take [id number] pain medication per package instructions as needed. Follow-up with primary care provider. Emergency department for new or worse symptoms Patient Language: Hungarian Prescriptions: No Action ropinirole 0.5 mg tablet 1 mg HS omeprazole 40 mg capsule,delayed release(DR/EC) 20 mg PO BID fexofenadine [Keerthi Allergy] 60 mg tablet 60 mg PO Q12H levothyroxine 88 mcg capsule 88 mcg PO DAILY Ozempic 0.25 mg or 0.5 mg (2 mg/3 mL) pen injector 0.25 mg subcut WEEKLY Rx Instructions: for 4 weeks cholecalciferol (vitamin D3) 1,250 mcg (50,000 unit) capsule 1,250 mcg PO WEEKLY lorazepam 0.5 mg tablet 0.5 mg PO DAILY PRN (Reason: Anxiety) albuterol sulfate 90 mcg/actuation HFA aerosol inhaler 1 puff inhalation Q4H PRN (Reason: sob,wheezing) Follow-up/Referrals: Bernardo,SHARA Cochran [Primary Care Provider] - 1 Week Time of Disposition: 14:00
== END 2023-12-23 14:05 | disposition home or self-care (01) ==
PROVIDERS: Emergency Provider Nurse Practitioner Family; PCP Nurse Practitioner Family
DX: R03.0 Elevated blood-pressure reading, without diagnosis of hypertension (principal); S69.92XA Unspecified injury of left wrist, hand and finger(s), initial encounter; W10.9XXA Fall (on) (from) unspecified stairs and steps, initial encounter; F17.290 Nicotine dependence, other tobacco product, uncomplicated; M79.7 Fibromyalgia; K21.9 Gastro-esophageal reflux disease without esophagitis; G47.33 Obstructive sleep apnea (adult) (pediatric)
CPT/HCPCS: 73110; 99213; G0463

== ENCOUNTER 2024-04-11 13:59 | Outpatient (CLI) | payer SELFPAY ==
--- NOTE | ~2024-04-11 | MM_ITS ---
EXAMINATION: MM screening [facility] BI w shanice HISTORY: Screening TECHNIQUE: Craniocaudal and mediolateral oblique 3-D tomosynthesis images were obtained and synthetic 2-D images were generated. CAD analysis was submitted and interpreted. COMPARISON: Comparison to multiple prior studies sequentially, with oldest reviewed study dated 06/15. BREAST PARENCHYMAL COMPOSITION: Not dense: There are scattered areas of fibroglandular density. FINDINGS: No significant change to focal asymmetry in the lower inner quadrant of the left breast, co nsistent with previous biopsy site. There is no evidence of suspicious mass, calcification, or emmanuel ectural distortion to suggest malignancy in either breast. There has been no suspicious interval christian ge. IMPRESSION: 1. No mammographic evidence of malignancy. 2. Recommend routine screening mammography in one year. BI-RADS Category 1: Negative Reviewed, dictated and finalized at location B. 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
== END 2024-04-11 14:00 | disposition home or self-care (01) ==
PROVIDERS: PCP Nurse Practitioner Family; Visit Provider Nurse Practitioner
DX: Z12.31 Encounter for screening mammogram for malignant neoplasm of breast (principal)
CPT/HCPCS: 77063; 77067

== ENCOUNTER 2024-05-04 17:29 | Emergency (ER) | payer OTHER, SELFPAY ==
--- NOTE | ~2024-05-04 | XR_ITS ---
EXAMINATION: XR chest 2V Exam Date/Time: 05/04/2024 17:50 CDT HISTORY: prod cough x 2 weeks pt vapes Comparison: 10/01/2023. RESULT: Lines, tubes, and devices: Cholecystectomy clips. Lungs and pleura: Small linear opacity in the peripheral left lower lung likely representing scar/at electasis. Cardiomediastinal silhouette: Stable. Other: No acute osseous or upper abdominal finding. IMPRESSION: No acute cardiopulmonary process. Reviewed, dictated and finalized at location K.
--- NOTE | 2024-05-04 17:39 | ED.URI ---
HPI - URI/Sore Throat General Chief Complaint: Upper Respiratory Infection Stated Complaint: SOB, just getting over flu Time Seen by Provider: 05/04/24 17:39 Source: patient, RN notes reviewed and old records reviewed Mode of arrival: ambulatory Limitations: no limitations History of Present Illness HPI Narrative: 48-year-old female presents to the [facility] with concerns for pneumonia. States that she did a home test 2 weeks ago, 04/21/23, for influenza. States that her significant other was influenza A positive. She did a home test which she reports as positive. Since then has had a cough, some increased shortness of breath and congestion. Has taken [id number] products and home resting. Onset (ago): week(s) (2) Related Data Home Medications ?Medication ?Instructions ?Recorded ?Confirmed ?Last Taken ?Type levothyroxine 112 mcg tablet 112 mcg PO DAILY 05/04/24 05/04/24 Unknown History semaglutide 1 mg/dose (4 mg/3 mL) 1 mg subcut WEEKLY 05/04/24 05/04/24 Unknown History subcutaneous pen injector (Ozempic) Allergies Allergy/AdvReac Type Severity Reaction Status Date / Time azithromycin Allergy Severe RASH Verified 05/04/24 17:32 Cephalosporins Allergy Severe Anaphylactic Verified 05/04/24 17:32 Shock, Rash Review of Systems Review of Systems: All systems reviewed & are unremarkable except as noted in HPI and below Constitutional: Constitutional: Reports no additional constitutional complaints ENT: Reports system reviewed and no additional complaints, except as documented Cardiovascular: Cardiovascular: Reports no additional cardiovascular complaints, Denies chest pain and Denies dyspnea Respiratory: Respiratory: Reports as per HPI, Denies chest congestion, Reports cough and Reports dyspnea Musculoskeletal: Musculoskeletal: Reports no additional musculoskeletal complaints Integumentary/Breasts: Skin/Breast: Reports system reviewed and no additional complaints, except as docu PMFSH Past Medical History Medical History Ectopic GERD (gastroesophageal reflux disease) MICAH on CPAP Chronic bronchitis Low back pain Fibromyalgia Surgical History Surgical History History of bunionectomy History of excision of pilonidal cyst 04/2016 H/O tubal ligation History of carpal tunnel release History of total abdominal hysterectomy with left ovarian cystectomy History of cholecystectomy History of Family History Family History Mother Cerebrovascular accident Angina pectoris COPD (chronic obstructive pulmonary disease) Emphysema lung Heart disease Thyroid disorder Father Lung cancer Sibling Epilepsy brother Diabetes mellitus sister Multiple sclerosis sister Depression Grandparent Alcoholism Other Family history of allergic disorder Family history of cardiovascular disease Family history of malignant neoplasm Social History Social History Smoking packs per day: 1 Smoking cigarettes per day: 20.0 Years smoked: 20 Smoking pack-years: 20.00 Smoking status: Current every day smoker Tobacco type: e-cigarettes/vaping Alcohol intake: current Substance use: never Substance use type: does not use Lack of Transportation: No Lack of Food: Never True Current Housing: I Have Housing Concerned About Future Housing: No Difficulty Paying Gas/Electric Bills: No Difficulty Paying for Meds: No Currently Unemployed: No Education: High School Diploma/GED Difficulty w/ Childcare or Family Care: No Gender identity (if verbalized by the patient): Female Comments At the time of my signature, I reviewed and agree with the nursing past medical, surgical, social, and family history. There is no relevant family history pertinent to the patient complaint. Exam Const: General: cooperative, healthy appearing, comfortable, no acute distress, well developed, alert and well nourished Nutritional Appearance: well nourished and obese Orientation/consciousness: patient oriented x3 Limitations: no limitations HENMT: Head: normal to inspection Ears: hearing grossly normal bilaterally, external ears normal, TM's normal bilaterally, EAC's normal, mastoids normal and no periauricular adenopathy Mouth: Yes Normal oral and palatal mucosa present, Yes lip normal, Yes tongue normal and Yes moist mucous membranes Throat: posterior oropharynx normal, uvula midline and no uvular edema Eyes: General: appearance normal, both eyes and all related structures Alignment and Position: alignment normal Neck: Neck: normal visual inspection, full ROM, no lymphadenopathy and no meningeal signs Chest: Chest palpation & inspection: normal inspection of the chest Resp: Effort & Inspection: normal respiratory effort and able to speak in complete sentences Auscultation: clear to auscultation bilaterally, no crackles, no rales, no rhonchi and no wheezes Cardio: Rate: regular rate Skin: General skin exam: normal color and no rashes or lesions noted Neuro: General: patient oriented x3, gait normal, moves all extremities and no meningeal signs Cognition (Neuro): normal cognition Speech: normal speech Gait exam (Neuro): Normal gait present Extrem: General: normal to inspection, full ROM, capillary refill normal and normal gait Psych: Appearance: grossly normal and well kempt Mental Status: mental status grossly normal Speech and movement: Normal speech and movement present and Clear speech present Affect: normal affect Attitude: cooperative Course Course Level of Care: Express Care Visit Vital Signs Vital signs: Vital Signs Temperature 96.4 F L 05/04/24 17:40 Pulse Rate 78 05/04/24 17:40 Respiratory Rate 16 05/04/24 17:40 Blood Pressure 140/89 05/04/24 17:40 Pulse Oximetry 100 05/04/24 17:40 Oxygen Delivery Room Air 05/04/24 17:40 Temperature 96.4 F L 05/04/24 17:40 Pulse Rate 78 05/04/24 17:40 Respiratory Rate 16 05/04/24 17:40 Blood Pressure 140/89 05/04/24 17:40 Pulse Oximetry 100 05/04/24 17:40 Oxygen Delivery Room Air 05/04/24 17:40 Reviewed MDM - URI/Sore Throat MDM Narrative Medical decision making narrative: Patient sitting comfortably in exam room. Nontoxic, vitals stable. Patient presents with concerns for pneumonia. Patient recently diagnosed herself with influenza through a home flu test. Patient's chest x-ray did not show signs of pneumonia No acute findings noted on exam. Discussed importance of following up, signs and symptoms proceed to the emergency room. Patient appropriate for outpatient treatment and follow-up Discharge instructions reviewed with patient, as well as provided in writing per nursing staff. The instructions also include specific and strict return/GO TO THE ER as well as f/u information. All questions have been answered, and the patient deny any further questions with discharge and discharge plan. Some parts of this dictation were generated by voice recognition software and may contain typographical and/or grammatical inaccuracies. Differential Diagnosis Differential diagnosis: Likely upper respiratory infection, otitis media, sinusitis, viral infection, bronchitis, influenza and pharyngitis Imaging Data Radiologist's impression: EXAMINATION: XR chest 2V Exam Date/Time: 05/04/2024 17:50 CDT HISTORY: prod cough x 2 weeks pt vapes Comparison: 10/01/2023. RESULT: Lines, tubes, and devices: Cholecystectomy clips. Lungs and pleura: Small linear opacity in the peripheral left lower lung likely representing scar/atelectasis. Cardiomediastinal silhouette: Stable. Other: No acute osseous or upper abdominal finding. IMPRESSION: No acute cardiopulmonary process. Critical Care Time Critical Care Time Critical Care Time: No Discharge Plan Discharge Clinical Impression: Cough, Post viral syndrome Patient Disposition: Home, Self-Care Condition: Stable Instructions: Antibiotic Form, Upper Respiratory Infection (ED), Viral Syndrome (ED), Acute Cough (ED) Additional Instructions: Today your x-ray did not show signs of pneumonia It is very important to treat your symptoms. Drink plenty of water, Gatorade, Pedialyte, ice pops or Jell-O. -Alternate Tylenol and Motrin per package directions for fever or pain. You can alternate every 4 hours -Antihistamine medication such as Zyrtec/Claritin/Keerthi during the day can help improve symptoms. -You can also use Mucinex. Be sure to drink plenty of water with this medication at least 8 ounces with every dose and it is important to drink 8 to 10 glasses of water per day. Water is a natural decongestant -Eat and drink things that are easy to swallow, like tea or soup, or popsicles. -Oral rinses such as: Salt water gargles and/or may use topical anesthetic (eg. Chloraseptic spray) or lozenges to relieve dryness or throat pain). -Frequent hand washing or hand access rep is one of the best ways to prevent spread of infection. -Using a vaporizer or humidifier at night will also help thin secretions and help with coughing up phlegm. -Follow up with primary care provider in 7-10 days if condition is not improving - For new or worsening symptoms go directly to the nearest ER Patient Language: Mauritian Prescriptions: New albuterol sulfate 90 mcg/actuation HFA aerosol inhaler 2 puff inhalation QID PRN (Reason: shortness of breath or wheezing) Qty: 6.7 0RF No Action levothyroxine 112 mcg tablet 112 mcg PO DAILY Ozempic 1 mg/dose (4 mg/3 mL) pen injector 1 mg SUBCUT WEEKLY Follow-up/Referrals: Bernardo,SHARA Cochran [Primary Care Provider] - 1 Week ([facility] care follow up ) Stand Alone Forms: Work/School Release IP Time of Disposition: 18:16
[2024-05-04 17:40] VITALS: BP 140/89; PULSE 78; RESP 16; TEMP 35.8; O2SAT 100
== END 2024-05-04 18:19 | disposition home or self-care (01) ==
PROVIDERS: Emergency Provider Nurse Practitioner; PCP Nurse Practitioner Family
DX: R05.9 Cough, unspecified (principal); G93.31 Postviral fatigue syndrome; F17.290 Nicotine dependence, other tobacco product, uncomplicated; K21.9 Gastro-esophageal reflux disease without esophagitis; G47.33 Obstructive sleep apnea (adult) (pediatric); M79.7 Fibromyalgia
CPT/HCPCS: 71046; 99213; G0463